=== PATIENT | female | born 1950 | race Caucasian/White ===

== ENCOUNTER 2018-03-16 12:49 | Emergency (ER) | payer MEDICARE, BC, SELFPAY ==
[2018-03-16 12:55] VITALS: BP 106/77; PULSE 86; RESP 17; TEMP 36.7; O2SAT 98
--- NOTE | 2018-03-16 13:08 | W.ED.GENAD ---
Discharge Plan Discharge Details Chief Complaint: Laceration Primary Care Provider: Thuy Degroot ED Provider: Sin Quinonez Home Meds and New Rx's Prescriptions: No Action estradiol [Climara] 1 EACH patch weekly 1 ea Transdermal weekly Qty: 4 RF: 9 Medical Decision Making Medical Records Delightful 67-year-old female with small laceration to left lower extremity varicosity that cause bleeding, that ceased with pressure by the time I evaluated her. She does not require any other workup. I dressed the wound myself and discussed all management as well as return precautions with the patient HPI - General Adult General Mode of arrival: ambulatory. Date/Time Provider Initiated Documentation: 03/16/18 13:08. Limitations to Documentation: no limitations. Information obtained by: patient. HPI Narrative: Left lower extremity anterior leg bleedin-year-old female presents to the abrupt onset of moderate left lower leg bleeding that began when shaving and she opened a small varicosity. It was constant, spurting, minimally improved with pressure and then resolved with pressure by the time of triage at the ER. She did not have significant blood loss. She does not have any pain. She is not lightheaded, weak or Related Data Allergies Allergy/AdvReac Type Severity Reaction Status Date / Time guaifenesin [From Robitussin] AdvReac Severe tachacardia Unverified 03/16/18 12:58 General Stated Complaint: Laceration PETER: 5 Review of Systems Review of Systems For systems reviewed, otherwise [facility] Family History Other Diabetes Heart disease Hyperlipidemia Osteoporosis Social History Smoking/Tobacco Use Status: Former Tobacco Use Surgical History Abdominal hysterectomy Appendectomy Exam Const General: cooperative and healthy appearing Orientation: alert and awake Eyes Pupils: PERRL EOM: EOM intact bilaterally Neuro General: alert, awake and oriented x3 Extrem General: normal to inspection, full ROM, normal capillary refill and other (There is a punctate area of the left anterior lower tibia with healed blood that appears to be varicosity that is now stopped) Psych Mood: congruent mood Attitude: cooperative Insight: insight good Course Vital Signs Temperature 36.7 C 03/16/18 12:55 Pulse 86 03/16/18 12:55 Respiratory Rate 17 03/16/18 12:55 Blood Pressure 106/77 09/07/18 12:55 Pulse Oximetry 98 03/16/18 12:55 Temperature 36.7 C 03/16/18 12:55 Pulse 86 03/16/18 12:55 Respiratory Rate 17 03/16/18 12:55 Blood Pressure 106/77 03/16/18 12:55 Pulse Oximetry 98 03/16/18 12:55
--- NOTE | 2018-03-16 13:12 | ED.GENADUL_ITS ---
Discharge Plan Discharge Details Chief Complaint: Laceration Primary Care Provider: Thuy Degroot ED Provider: Sin Quinonez Home Meds and New Rx's Prescriptions: No Action estradiol [Climara] 1 EACH patch weekly 1 ea Transdermal weekly Qty: 4 RF: 9 Medical Decision Making Medical Records Delightful 67-year-old female with small laceration to left lower extremity varicosity that cause bleeding, that ceased with pressure by the time I evaluated her. She does not require any other workup. I dressed the wound myself and discussed all management as well as return precautions with the patient HPI - General Adult General Mode of arrival: ambulatory . Date/Time Provider Initiated Documentation: 03/16/18 13:08 . Limitations to Documentation: no limitations . Information obtained by: patient . HPI Narrative: Left lower extremity anterior leg bleedin-year-old female presents to the abrupt onset of moderate left lower leg bleeding that began when shaving and she opened a small varicosity. It was constant, spurting, minimally improved with pressure and then resolved with pressure by the time of triage at the ER. She did not have significant blood loss. She does not have any pain. She is not lightheaded, weak or Related Data Allergies Allergy/AdvReac Type Severity Reaction Status Date / Time guaifenesin [From Robitussin] AdvReac Severe tachacardia Unverified 03/16/18 12: 58 General Stated Complaint: Laceration PETER: 5 Review of Systems Review of Systems For systems reviewed, otherwise - [facility] Family History Other Diabetes Heart disease Hyperlipidemia Osteoporosis Social History Smoking/Tobacco Use Status: Former Tobacco Use Surgical History Abdominal hysterectomy Appendectomy Exam Const General: cooperative and healthy appearing Orientation: alert and awake Eyes Pupils: PERRL EOM: EOM intact bilaterally Neuro General: alert, awake and oriented x3 Extrem General: normal to inspection, full ROM, normal capillary refill and other ( There is a punctate area of the left anterior lower tibia with healed blood that appears to be varicosity that is now stopped) Psych Mood: congruent mood Attitude: cooperative Insight: insight good Course Vital Signs Temperature 36.7 C 03/16/18 12:55 Pulse 86 03/16/18 12:55 Respiratory Rate 17 03/16/18 12:55 Blood Pressure 106/77 09/07/18 12:55 Pulse Oximetry 98 03/16/18 12:55 Temperature 36.7 C 03/16/18 12:55 Pulse 86 03/16/18 12:55 Respiratory Rate 17 03/16/18 12:55 Blood Pressure 106/77 03/16/18 12:55 Pulse Oximetry 98 03/16/18 12:55
== END 2018-03-16 13:45 | disposition home or self-care (01) ==
PROVIDERS: Emergency Provider Emergency Medicine; Family Provider Family Medicine; PCP Family Medicine
DX: S85.812A Laceration of other blood vessels at lower leg level, left leg, initial encounter (principal); W26.8XXA Contact with other sharp object(s), not elsewhere classified, initial encounter
CPT/HCPCS: 99281